=== PATIENT | female | born 1990 | race Caucasian/White ===

== ENCOUNTER 2021-04-17 08:53 | Emergency (ER) | payer OTHER ==
[~2021-04-17] VITALS: Ht 167.6 cm; Wt 74.8 kg
[2021-04-17] MEDS ORDERED: CEPH500 PO (09:40)
[2021-04-17] MEDS ORDERED: PRED10 PO (09:40)
== END 2021-04-17 09:43 | disposition home or self-care (01) ==
LOC: ER 08:53
DX: A46 Erysipelas (principal); Z88.1 Allergy status to other antibiotic agents; Z87.891 Personal history of nicotine dependence
CPT/HCPCS: 99282

== ENCOUNTER 2024-01-14 13:25 | Emergency (ER) | payer OTHER ==
[~2024-01-14] VITALS: Ht 157.5 cm; Wt 86.2 kg
[~2024-01-14 13:25] MED LIST: CEPH500 PO; PRED10 PO
[2024-01-14 13:31] VITALS: BP 146/95
[2024-01-14] MEDS ORDERED: BUDESONIDE-FO10.2 G2 INH (14:20)
[2024-01-14] MEDS ORDERED: Ventolin/Prove6.7 GM INH (14:20)
[2024-01-14] MEDS ORDERED: RINVOQ30 MG (14:21)
[2024-01-14] MEDS ORDERED: CLIN300 PO (14:42)
== END 2024-01-14 14:49 | disposition home or self-care (01) ==
LOC: ER 13:25
DX: L02.11 Cutaneous abscess of neck (principal); L03.221 Cellulitis of neck; Z87.891 Personal history of nicotine dependence; Z88.1 Allergy status to other antibiotic agents; Z88.2 Allergy status to sulfonamides; Z88.8 Allergy status to other drugs, medicaments and biological substances; Z91.040 Latex allergy status
CPT/HCPCS: 99283

== ENCOUNTER → 2024-08-25 | Outpatient (CLI) | payer OTHER ==
[~2024-08-25] MED LIST changes: +BUDESONIDE-FO10.2 G2 INH; +CLIN300 PO; +RINVOQ30 MG; +Ventolin/Prove6.7 GM INH
[2024-08-28 05:18] LABS: VARICELLA-ZOSTER VIRUS BY PCR Not Detected; VARICELLA-ZOSTER VIRUS SOURCE NOSE
[2024-08-28 07:12] LABS: HSV 1 SUBTYPE BY PCR Detected; HSV 2 SUBTYPE BY PCR Not Detected; HSV SUBTYPE SOURCE NOSE
== END ==
LOC: LAB 14:44 → LAB SHORT 14:44
PROVIDERS: General Practice
DX: L98.9 Disorder of the skin and subcutaneous tissue, unspecified (principal); L08.0 Pyoderma
CPT/HCPCS: 87070; 87077; 87147; 87186; 87529; 87798

== ENCOUNTER → 2024-12-24 | Outpatient (CLI) | payer OTHER ==
[2024-12-28 05:55] LABS: HSV 1 SUBTYPE BY PCR Detected; HSV 2 SUBTYPE BY PCR Not Detected; HSV SUBTYPE SOURCE NOSE
[2024-12-28 16:27] LABS: VARICELLA-ZOSTER VIRUS BY PCR Not Detected; VARICELLA-ZOSTER VIRUS SOURCE NOSE
== END ==
LOC: LAB SHORT 13:52 → LAB 13:52
PROVIDERS: General Practice
DX: B34.9 Viral infection, unspecified (principal)
CPT/HCPCS: 87529; 87798